=== PATIENT | male | born 1980 | race African-American/Black ===

== ENCOUNTER 2017-03-07 11:12 | Emergency (ER) | payer SELFPAY, OTHER ==
[2017-03-07] MEDS: LORAZEPAM 2 MG INJ IM (11:50)
== END 2017-03-07 13:30 | disposition home or self-care (01) ==
LOC: FTE 11:12
DX: F41.9 Anxiety disorder, unspecified (principal); F15.10 Other stimulant abuse, uncomplicated; I10 Essential (primary) hypertension
CPT/HCPCS: 93005; 96372; 99284-25

== ENCOUNTER 2017-04-22 21:33 | Emergency (ER) | payer MEDICAID ==
[2017-04-22] MEDS: LORAZEPAM 2 MG INJ IV (22:13)
[2017-04-22] MEDS: SOD CHLORIDE 0.9% 1,000 ML IV (22:13)
== END 2017-04-22 23:50 | disposition home or self-care (01) ==
LOC: E/R 23:50
DX: F41.9 Anxiety disorder, unspecified (principal); I10 Essential (primary) hypertension; F17.210 Nicotine dependence, cigarettes, uncomplicated
CPT/HCPCS: 71045; 93005; 96374; 99284-25

== ENCOUNTER 2017-09-21 14:20 | Emergency (ER) | payer SELFPAY, MEDICAID | END 2017-09-21 19:21 | disposition left against medical advice (07) | LOC: E/R 14:20 | DX: Z53.21 Procedure and treatment not carried out due to patient leaving prior to being seen by health care provider (principal) | CPT/HCPCS: 93005 ==

== ENCOUNTER 2017-10-14 04:45 | Emergency (ER) | payer OTHER ==
[2017-10-14] MEDS ORDERED: NITROGLYCERIN (SL) 0.4 MG TAB SL (06:30)
[2017-10-14 07:00] LABS: ADD MAN DIFF? NO
[2017-10-14 07:02] LABS: BASOPHILS % 0.2 % (0.0-2.0); EOSINOPHILS % 0.3 % (0.0-7.0); HEMATOCRIT 39.9 % (42.0-52.0); HEMOGLOBIN 13.3 g/dl (14.0-18.0); LYMPHOCYTES # 1.5 10^3/ul (0.8-2.9); MEAN CORPUSCULAR HEMOGLOBIN 28.1 pg (29.0-33.0); MEAN CORPUSCULAR HGB CONC 33.3 g/dl (32.0-37.0); MEAN CORPUSCULAR VOLUME 84.4 fl (82.0-101.0); MEAN PLATELET VOLUME 11.7 fl (7.4-10.4); MONOCYTE # 0.4 10^3/ul (0.3-0.9); MONOCYTES % 3.6 % (0.0-11.0); NEUTROPHILS % 81.5 % (39.0-77.0); PLATELET COUNT 192 10^3/UL (140-415); RED BLOOD COUNT 4.73 10^6/ul (4.70-6.10)
[2017-10-14] MEDS: HYDROmorphONE 1 MG/ML SYG IV (07:16)
[2017-10-14] MEDS: NITROGLYCERIN 2% 1 GM OINT PKT TD (07:16)
[2017-10-14] MEDS: ONDANSETRON 4 MG INJ IV (07:16)
[2017-10-14] MEDS: ASPIRIN 81 MG TAB PO (07:16)
[2017-10-14 07:24] LABS: ALANINE AMINOTRANSFERASE 49 IU/L (13-69); ALBUMIN 4.6 g/dl (3.3-4.9); ALBUMIN/GLOBULIN RATIO 1.39; ALKALINE PHOSPHATASE 94 IU/L (42-121); ANION GAP 17 (8-16); ASPARTATE AMINO TRANSFERASE 29 IU/L (15-46); BILIRUBIN,INDIRECT 0.7 mg/dl (0-1.1); BILIRUBIN,TOTAL 0.7 mg/dl (0.2-1.3); BLOOD UREA NITROGEN 11 mg/dl (7-20); CALCIUM 9.6 mg/dl (8.4-10.2); CARBON DIOXIDE 27 mmol/L (21-31); CHLORIDE 97 mmol/L (97-110); CREATININE 1.05 mg/dl (0.61-1.24); POTASSIUM 4.3 mmol/L (3.5-5.1); SODIUM 137 mmol/L (135-144); TOTAL PROTEIN 7.9 g/dl (6.1-8.1)
[2017-10-14 07:27] LABS: GLUCOSE 554 mg/dl (70-220)
[2017-10-14] MEDS ORDERED: GLUCOSE GEL 15 GRAM TUBE PO ×2 (08:00)
[2017-10-14] MEDS ORDERED: GLUCOSE GEL 15 GRAM TUBE BUCCAL (08:00)
[2017-10-14] MEDS ORDERED: GLUCAGON 1 MG INJ IM (08:00)
[2017-10-14] MEDS ORDERED: DEXTROSE 50% 50 ML SYRINGE IV ×2 (08:00)
[2017-10-14] MEDS: INSULIN LISPRO 100 UNIT/ML VIAL SC (08:26)
[2017-10-14] MEDS: HYDROmorphONE 0.5 MG/0.5 ML SYG IV (09:29)
[2017-10-14] MEDS ORDERED: ONDANSETRON 4 MG INJ IV (10:30)
[2017-10-14] MEDS ORDERED: ACETAMINOPHEN 325 MG TAB PO (10:30)
[2017-10-16] MEDS ORDERED: NITROGLYCERIN (IC) 100 MCG/ML INJ (12:04)
[2017-10-16] MEDS ORDERED: SOD CHLORIDE 0.9% 500 ML (12:04)
[2017-10-16] MEDS ORDERED: HEPARIN 1000 UNITS/ML 10 ML INJ (12:04)
[2017-10-16] MEDS ORDERED: FENTAnyl 50 MCG/ML VIAL (12:04)
[2017-10-16] MEDS ORDERED: VERAPAMIL 5 MG INJ (12:04)
[2017-10-16] MEDS ORDERED: IODIXANOL LOCM 100 ML BTL (12:04)
[2017-10-16] MEDS ORDERED: MIDAZOLAM 1 MG/ML 2 ML INJ (12:05)
[2017-10-16] MEDS ORDERED: LIDOCAINE 1% (MDV) 10 ML INJ (12:05)
[2017-10-16] MEDS ORDERED: BIVALIRUDIN 250MG /NS 50 ML 50 ML IVPB (12:54)
[2017-10-16] MEDS ORDERED: IOHEXOL 350MG/ML 50 ML BTL (12:54)
[2017-10-16] MEDS ORDERED: ASPIRIN 325 MG TAB ×2 (13:15→13:17)
[2017-10-16] MEDS ORDERED: CLOPIDOGREL 300 MG TAB (13:16)
[2017-10-16] MEDS ORDERED: ONDANSETRON 4 MG INJ (13:23)
== END 2017-10-14 17:25 | disposition short-term general hospital (02) ==
LOC: E/R 04:45
DX: R07.2 Precordial pain (principal); I10 Essential (primary) hypertension; E11.9 Type 2 diabetes mellitus without complications; F17.210 Nicotine dependence, cigarettes, uncomplicated
CPT/HCPCS: 36415; 71045; 80053; 82962; 84484; 85025; 93005; 96372; 96374; 96375; 96376; 99285-25

== ENCOUNTER 2017-10-15 22:09 | Inpatient (IN) | payer OTHER ==
[2017-10-15] MEDS: HEPARIN 1000 UNITS/ML 10 ML INJ IV (23:00)
[2017-10-16 00:01] LABS: ADD MAN DIFF? NO
[2017-10-16 00:04] LABS: BASOPHILS % 0.2 % (0.0-2.0); EOSINOPHILS # 0.1 10^3/ul (0.0-0.5); EOSINOPHILS % 1.1 % (0.0-7.0); HEMATOCRIT 38.8 % (42.0-52.0); HEMOGLOBIN 13.1 g/dl (14.0-18.0); LYMPHOCYTES # 2.9 10^3/ul (0.8-2.9); LYMPHOCYTES % 32.9 % (15.0-51.0); MEAN CORPUSCULAR HEMOGLOBIN 28.6 pg (29.0-33.0); MEAN CORPUSCULAR HGB CONC 33.8 g/dl (32.0-37.0); MEAN CORPUSCULAR VOLUME 84.7 fl (82.0-101.0); MEAN PLATELET VOLUME 11.7 fl (7.4-10.4); MONOCYTE # 0.4 10^3/ul (0.3-0.9); MONOCYTES % 4.8 % (0.0-11.0); NEUTROPHIL # 5.4 10^3/ul (1.6-7.5); NEUTROPHILS % 60.7 % (39.0-77.0); PLATELET COUNT 187 10^3/UL (140-415); RED BLOOD COUNT 4.58 10^6/ul (4.70-6.10); RED CELL DISTRIBUTION WIDTH 12.8 % (11.5-14.5)
[2017-10-16 00:04] LABS: WHITE BLOOD COUNT 8.8 10^3/ul (4.8-10.8)
[2017-10-16 00:22] LABS: ANION GAP 12 (8-16); BLOOD UREA NITROGEN 11 mg/dl (7-20); CALCIUM 9.4 mg/dl (8.4-10.2); CARBON DIOXIDE 31 mmol/L (21-31); CHLORIDE 95 mmol/L (97-110); CREATININE 0.86 mg/dl (0.61-1.24); GLUCOSE 340 mg/dl (70-220); POTASSIUM 3.4 mmol/L (3.5-5.1); SODIUM 135 mmol/L (135-144)
[2017-10-16 00:23] LABS: PROTIME 12.2 Sec (11.9-14.9)
[2017-10-16 00:24] LABS: PARTIAL THROMBOPLASTIN TIME 25.7 Sec (25.0-35.0)
[2017-10-16] MEDS ORDERED: DEXTROSE 50% 50 ML SYRINGE IV ×2 (01:00)
[2017-10-16] MEDS ORDERED: GLUCAGON 1 MG INJ IM (01:00)
[2017-10-16] MEDS ORDERED: GLUCOSE GEL 15 GRAM TUBE PO ×2 (01:00)
[2017-10-16] MEDS ORDERED: GLUCOSE GEL 15 GRAM TUBE BUCCAL (01:00)
[2017-10-16] MEDS: HEPARIN 25000 UNITS/250 ML 250 ML IV (01:10)
[2017-10-16] MEDS: ACCU-CHEK XX (02:00)
[2017-10-16] MEDS: POTASSIUM CHLORIDE (SR) 20 MEQ TAB PO (06:23)
[2017-10-16 06:33] LABS: ADD MAN DIFF? NO
[2017-10-16 06:42] LABS: BASOPHILS % 0.4 % (0.0-2.0); EOSINOPHILS # 0.2 10^3/ul (0.0-0.5); HEMATOCRIT 37.6 % (42.0-52.0); HEMOGLOBIN 12.9 g/dl (14.0-18.0); LYMPHOCYTES # 2.7 10^3/ul (0.8-2.9); LYMPHOCYTES % 33.5 % (15.0-51.0); MEAN CORPUSCULAR HGB CONC 34.3 g/dl (32.0-37.0); MEAN CORPUSCULAR VOLUME 84.5 fl (82.0-101.0); MEAN PLATELET VOLUME 11.7 fl (7.4-10.4); MONOCYTE # 0.5 10^3/ul (0.3-0.9); MONOCYTES % 6.3 % (0.0-11.0); NEUTROPHIL # 4.7 10^3/ul (1.6-7.5); NEUTROPHILS % 57.6 % (39.0-77.0); PLATELET COUNT 187 10^3/UL (140-415); RED BLOOD COUNT 4.45 10^6/ul (4.70-6.10); RED CELL DISTRIBUTION WIDTH 12.7 % (11.5-14.5)
[2017-10-16 06:42] LABS: WHITE BLOOD COUNT 8.1 10^3/ul (4.8-10.8)
[2017-10-16 06:56] LABS: PARTIAL THROMBOPLASTIN TIME 24.5 Sec (25.0-35.0)
[2017-10-16 07:00] LABS: ANION GAP 15 (8-16); BLOOD UREA NITROGEN 14 mg/dl (7-20); CALCIUM 9.3 mg/dl (8.4-10.2); CARBON DIOXIDE 29 mmol/L (21-31); CHLORIDE 97 mmol/L (97-110); CREATININE 0.91 mg/dl (0.61-1.24); GLUCOSE 320 mg/dl (70-220); POTASSIUM 3.8 mmol/L (3.5-5.1); SODIUM 137 mmol/L (135-144)
[2017-10-16] MEDS: HEPARIN 1000 UNITS/ML 10 ML INJ IV (07:49)
[2017-10-16] MEDS: ASPIRIN 81 MG TAB PO (08:48)
[2017-10-16] MEDS: INSULIN ASPART [NOVOLOG] 3 ML PEN SC ×4 (08:54→20:31)
[2017-10-16 09:59] LABS: CHOLESTEROL 185 mg/dl (100-200)
[2017-10-16 09:59] LABS: HDL CHOLESTEROL 23 mg/dl (28-63); LDL CHOLESTEROL,CALCULATED 119 mg/dl; TRIGLYCERIDES 214 mg/dl (0-149)
[2017-10-16] MEDS ORDERED: DIAZEPAM 2 MG TAB PO (13:30)
[2017-10-16] MEDS ORDERED: ZOLPIDEM 5 MG TAB PO (13:30)
[2017-10-16] MEDS: SOD CHLORIDE 0.9% 1,000 ML IV (13:59)
[2017-10-16] MEDS: INSULIN GLARGINE [LANTus] (100 UNITS/ML) SYG SC (20:30)
[2017-10-16] MEDS: ATORVASTATIN 40 MG TAB PO (20:33)
[2017-10-16] MEDS: ACETAMINOPHEN 325 MG TAB PO (23:54)
[2017-10-17] MEDS: ACCU-CHEK XX (01:38)
[2017-10-17] MEDS: SOD CHLORIDE 0.9% 1,000 ML IV (01:39)
[2017-10-17 06:14] LABS: ADD MAN DIFF? NO
[2017-10-17 06:24] LABS: BASOPHILS % 0.3 % (0.0-2.0); EOSINOPHILS # 0.2 10^3/ul (0.0-0.5); HEMATOCRIT 36.2 % (42.0-52.0); HEMOGLOBIN 11.9 g/dl (14.0-18.0); LYMPHOCYTES # 2.7 10^3/ul (0.8-2.9); MEAN CORPUSCULAR HEMOGLOBIN 27.8 pg (29.0-33.0); MEAN CORPUSCULAR HGB CONC 32.9 g/dl (32.0-37.0); MEAN CORPUSCULAR VOLUME 84.6 fl (82.0-101.0); MEAN PLATELET VOLUME 11.4 fl (7.4-10.4); MONOCYTE # 0.5 10^3/ul (0.3-0.9); MONOCYTES % 6.4 % (0.0-11.0); NEUTROPHIL # 4.4 10^3/ul (1.6-7.5); NEUTROPHILS % 55.9 % (39.0-77.0); PLATELET COUNT 184 10^3/UL (140-415); RED BLOOD COUNT 4.28 10^6/ul (4.70-6.10); RED CELL DISTRIBUTION WIDTH 13.1 % (11.5-14.5)
[2017-10-17 06:24] LABS: WHITE BLOOD COUNT 7.8 10^3/ul (4.8-10.8)
[2017-10-17] MEDS: ACETAMINOPHEN 325 MG TAB PO (06:38)
[2017-10-17 06:43] LABS: PARTIAL THROMBOPLASTIN TIME 26.4 Sec (25.0-35.0)
[2017-10-17 06:46] LABS: ANION GAP 10 (8-16); BLOOD UREA NITROGEN 12 mg/dl (7-20); CALCIUM 8.9 mg/dl (8.4-10.2); CARBON DIOXIDE 29 mmol/L (21-31); CHLORIDE 103 mmol/L (97-110); CREATINE KINASE 127 IU/L (23-200); CREATININE 0.84 mg/dl (0.61-1.24); GLUCOSE 186 mg/dl (70-220); POTASSIUM 3.9 mmol/L (3.5-5.1); SODIUM 138 mmol/L (135-144)
[2017-10-17 06:52] LABS: CK INDEX 1.6; CK-MB 2.02 ng/ml (0.0-2.4)
[2017-10-17] MEDS: INSULIN ASPART [NOVOLOG] 3 ML PEN SC ×4 (08:03→21:00)
[2017-10-17] MEDS: ASPIRIN 81 MG TAB PO (08:05)
[2017-10-17] MEDS: CLOPIDOGREL 75 MG TAB PO (08:28)
[2017-10-17] MEDS: ENOXAPARIN 40 MG/0.4 ML SYG SC (10:35)
[2017-10-17] MEDS: OXYCODONE/ACETAMINOPHEN (5/325) TAB PO (18:45)
[2017-10-17] MEDS: ATORVASTATIN 40 MG TAB PO (21:59)
[2017-10-17] MEDS: INSULIN GLARGINE [LANTus] (100 UNITS/ML) SYG SC (22:40)
[2017-10-18] MEDS: OXYCODONE/ACETAMINOPHEN (5/325) TAB PO (00:53)
[2017-10-18] MEDS: ACCU-CHEK XX (02:00)
[2017-10-18] MEDS: CLOPIDOGREL 75 MG TAB PO (08:09)
[2017-10-18] MEDS: ASPIRIN 81 MG TAB PO (08:09)
[2017-10-18] MEDS: INSULIN ASPART [NOVOLOG] 3 ML PEN SC ×2 (08:22→12:29)
[2017-10-18] MEDS: ENOXAPARIN 40 MG/0.4 ML SYG SC (08:23)
[2017-10-18 11:30] LABS: ANION GAP 12 (8-16); BLOOD UREA NITROGEN 10 mg/dl (7-20); CALCIUM 9.2 mg/dl (8.4-10.2); CARBON DIOXIDE 28 mmol/L (21-31); CHLORIDE 101 mmol/L (97-110); CREATININE 0.76 mg/dl (0.61-1.24); GLUCOSE 240 mg/dl (70-220); POTASSIUM 3.8 mmol/L (3.5-5.1); SODIUM 137 mmol/L (135-144)
[2017-10-19] MEDS ORDERED: FUROSEMIDE 20 MG TAB PO (09:00)
== END 2017-10-18 16:34 | disposition home or self-care (01) | DRG 247 ==
LOC: ICU 22:09 → TEL 10-17 20:51
PROC: 027034Z Dilation of Coronary Artery, One Artery with Drug-eluting Intraluminal Device, Percutaneous Approach (ICD-10-PCS; principal; 2017-10-16 12:21)
PROC: 4A023N7 Measurement of Cardiac Sampling and Pressure, Left Heart, Percutaneous Approach (ICD-10-PCS; 2017-10-16 12:21)
PROC: B211YZZ Fluoroscopy of Multiple Coronary Arteries using Other Contrast (ICD-10-PCS; 2017-10-16 12:21)
DX: I21.4 Non-ST elevation (NSTEMI) myocardial infarction (principal); I42.9 Cardiomyopathy, unspecified; I10 Essential (primary) hypertension; E11.65 Type 2 diabetes mellitus with hyperglycemia; F15.10 Other stimulant abuse, uncomplicated; I25.10 Atherosclerotic heart disease of native coronary artery without angina pectoris; E78.5 Hyperlipidemia, unspecified
CPT/HCPCS: 80048; 80061; 82550; 82553; 82962; 83036; 84484; 85025; 85610; 85730; 87081; 93005; 93306; 93458

== ENCOUNTER 2017-11-11 12:18 | Emergency (ER) | payer OTHER ==
[2017-11-11 12:49] LABS: ADD MAN DIFF? NO
[2017-11-11 12:53] LABS: BASOPHILS % 0.2 % (0.0-2.0); EOSINOPHILS % 0.4 % (0.0-7.0); HEMOGLOBIN 11.6 g/dl (14.0-18.0); LYMPHOCYTES # 1.5 10^3/ul (0.8-2.9); LYMPHOCYTES % 26.6 % (15.0-51.0); MEAN CORPUSCULAR HGB CONC 33.1 g/dl (32.0-37.0); MEAN CORPUSCULAR VOLUME 84.5 fl (82.0-101.0); MEAN PLATELET VOLUME 9.7 fl (7.4-10.4); MONOCYTE # 0.2 10^3/ul (0.3-0.9); MONOCYTES % 3.8 % (0.0-11.0); NEUTROPHIL # 3.8 10^3/ul (1.6-7.5); NEUTROPHILS % 68.6 % (39.0-77.0); PLATELET COUNT 229 10^3/UL (140-415); RED BLOOD COUNT 4.14 10^6/ul (4.70-6.10); RED CELL DISTRIBUTION WIDTH 13.2 % (11.5-14.5)
[2017-11-11 12:53] LABS: WHITE BLOOD COUNT 5.5 10^3/ul (4.8-10.8)
[2017-11-11] MEDS: ASPIRIN 81 MG TAB PO (12:55)
[2017-11-11 13:15] LABS: ANION GAP 14 (8-16); BLOOD UREA NITROGEN 10 mg/dl (7-20); CALCIUM 9.6 mg/dl (8.4-10.2); CARBON DIOXIDE 29 mmol/L (21-31); CHLORIDE 105 mmol/L (97-110); CREATININE 0.84 mg/dl (0.61-1.24); GLUCOSE 134 mg/dl (70-220); POTASSIUM 4.3 mmol/L (3.5-5.1); SODIUM 144 mmol/L (135-144)
[2017-11-11 13:26] LABS: TROPONIN-I < 0.012 ng/ml (0.000-0.120)
== END 2017-11-11 14:51 | disposition left against medical advice (07) ==
LOC: E/R 12:18
DX: R07.89 Other chest pain (principal); D64.9 Anemia, unspecified; E11.9 Type 2 diabetes mellitus without complications; I25.10 Atherosclerotic heart disease of native coronary artery without angina pectoris; I11.0 Hypertensive heart disease with heart failure; I50.9 Heart failure, unspecified; Z79.82 Long term (current) use of aspirin; Z79.01 Long term (current) use of anticoagulants; Z79.4 Long term (current) use of insulin; Z98.61 Coronary angioplasty status
CPT/HCPCS: 36415; 71045; 80048; 84484; 85025; 93005; 99285-25

== ENCOUNTER 2018-01-24 17:03 | Emergency (ER) | payer SELFPAY, OTHER | END 2018-01-24 18:48 | disposition left against medical advice (07) | LOC: E/R 17:03 | DX: Z53.21 Procedure and treatment not carried out due to patient leaving prior to being seen by health care provider (principal) ==